=== PATIENT | male | born 1975 | race Two or more races ===

== ENCOUNTER 2022-06-19 16:32 | Emergency (ER) | payer MEDICAID ==
[~2022-06-19] VITALS: Ht 165.1 cm; Wt 59.6 kg
[2022-06-19] MEDS ORDERED: IBU600T PO (18:24)
[2022-06-19] MEDS ORDERED: IBUPROFEN 600 MG TAB PO ONE (18:30)
[2022-06-19 19:41] VITALS: BP 148/76
== END 2022-06-19 19:41 | disposition home or self-care (01) ==
LOC: ER 16:32
DX: S82.51XA Displaced fracture of medial malleolus of right tibia, initial encounter for closed fracture (principal); S93.601A Unspecified sprain of right foot, initial encounter; F41.9 Anxiety disorder, unspecified; W18.39XA Other fall on same level, initial encounter; Y93.66 Activity, soccer; Y92.89 Other specified places as the place of occurrence of the external cause; Y99.8 Other external cause status
CPT/HCPCS: 29515; 73610; 73630